=== PATIENT | female | born 1950 | race Caucasian/White ===

== ENCOUNTER 2016-12-25 19:54 | Observation (INO) | payer MEDICARE ==
[2016-12-25] MEDS ORDERED: ALBUTEROL SULFATE 2.5 MG/0.5 ML VIAL.NEB IH ONE ×2 (20:09→20:12)
[2016-12-25] MEDS ORDERED: ALBUTEROL SULFATE/IPRATROPIUM 3 ML NEBU IH ONE ×2 (20:20→20:21)
[2016-12-25] MEDS ORDERED: METHYLPREDNISOLONE SOD SUCC/PF 40 MG/ML VIAL IV ONE (20:21)
--- NOTE | 2016-12-25 20:25 | ERNOTE ---
Dyspnea - Date Date of Service: 12/25/16 - General Presenting Symptoms: shortness of breath, difficulty of breathing Time Seen by Provider: 12/25/16 20:17 Source: patient Exam Limitations: no limitations - Immun/Allergies/Home Medications Immunizations: IMMUNIZATION HX Immunizations Up to Date Yes History of Influenza Vaccine Yes Hx Pneumococcal Vaccination Yes Allergies/Adverse Reactions: Allergies No Known Drug Allergies Allergy (Verified 12/25/16 20:05) Home Medications: HOME MEDICATIONS Albuterol Sulfate [Proventil Hfa] 2 puff IH Q4H PRN 12/25/16 [Last Taken 19:45] - History of Present Illness Narrative: Pt. comes in with c/o SOB for over a week pt. saw the ER near her home in [facility].Pt. deniesa ny CP, but belcher state that she has fatigue, wheezing, cough and chest heaviness. Pt. states taht she ahs taken her albuterol inhaler without relief.Pt. has a known hx of asthma.Pt. denies any fever or rhinorrhea, NVD, or alleviating factors. Review of Systems - Review of Systems Constitutional: Present: weakness, fatigue. Absent: recent illness, fever, chills, malaise, weight loss EYE: Present: no symptoms reported ENT: Present: no symptoms reported Respiratory: Present: shortness of breath, cough, wheezing Cardiology: Present: no symptoms reported. Absent: chest pain, palpitations, edema Gastrointestinal/Abdominal: Present: no symptoms reported. Absent: nausea, vomiting, diarrhea Genitourinary: Present: no symptoms reported Musculoskeletal: Present: no symptoms reported. Absent: back pain, joint pain Skin: Present: no symptoms reported. Absent: rash, change in color Neurological: Present: no symptoms reported. Absent: headache, dizziness/light- headedness, numbness, tingling All Other Systems: All systems neg except as marked - Patient's Past Medical History Patient History - Medical: No pertinent hx Patient History - Cardiac/Respiratory: Asthma, Hypertension Patient History - Cancer: No Hx of Cancer Patient History - Surgical Procedures: Cholecystectomy, Total Hip Replacement Patient History - Other: None - Social History Living Situations: home Psych History: Hx of Anxiety Smoking Status: Never smoker Alcohol Use: none Drug Use: none - Immunizations Immunizations Up to Date: Yes Hx Pneumococcal Vaccination: Yes History of Influenza Vaccine: Yes Physical Exam - Physical Exam General Appearance: Present: wd/wn, alert, no apparent distress Eye Exam: Normal inspection: bilateral, PERRL: bilateral, EOMI: bilateral Ears, Nose, Throat: Present: normal ENT inspection, normal pharynx Neck: Present: normal inspection, nontender. Absent: lymphadenopathy (R), lymphadenopathy (L) Respiratory: Present: chest nontender, respiratory distress, accessory muscle use, wheezing - throughout Cardiovascular/Chest: Present: no murmur, normal peripheral pulses, tachycardia Gastrointestinal/Abdominal: Present: normal bowel sounds, nontender, nondistended, soft, no organomegaly Back Exam: Present: normal inspection, normal range of motion, no CVA tenderness , no vertebral tenderness Extremity Exam: Present: normal inspection, no edema Neurological Exam: Present: alert, oriented, normal mood/affect, no motor/ sensory deficits Skin Exam: Present: warm/dry, pallor ED Progress - Date and Time Seen: Date and Time: 12/25/16 21:25 Discussed with Nya and she accepts admittance for severe asthma exacerbation. - Results and Orders Patient's Lab Results:: I have reviewed the patient's lab results. - Vital Signs Patient's Vital Signs:: I have reviewed the patient's vital signs. Vital Signs: Vital Signs 12/25/16 12/25/16 12/25/16 19:59 20:03 20:10 Temperature 36.4 C L Pulse Rate 87 95 85 Respiratory 24 H 26 H 28 H Rate Blood Pressure 207/116 O2 Sat by Pulse 94 92 92 Oximetry 12/25/16 20:17 Temperature Pulse Rate 89 Respiratory 24 H Rate Blood Pressure O2 Sat by Pulse Oximetry - EKG EKG: NSR, nonspecific ST T wave changes EKG read: Reviewed by me EKG Comments: interp by dr franco - X-Ray X-Ray #1 X-Ray: chest Interpretation: Interp. by me X-ray Comments: Bronchial cuffing no mconsolidation - Progress/Reassessment Chief Complaint: Dyspnea Progress:: Unchanged Departure Clinical Impression: Acute exacerbation of asthma with allergic rhinitis - Departure Disposition: [facility] Condition: Serious
[2016-12-25] MEDS ORDERED: METHYLPREDNISOLONE SOD SUCC/PF 40 MG/ML VIAL ONE (20:26)
[2016-12-25 20:46] LABS: Hematocrit 42.3 % (37.0-47.0); Hemoglobin 14.4 gm/dL (12.5-16.0); Mean Cell Volume 90.2 fl (78-100); Mean Corpuscular Hemoglobin 30.7 pg (27-31); Mean Platelet Volume 10.1 fl (6.0-9.5); Platelet Count 205 K/mm3 (150-450); Red Blood Count 4.69 M/mm3 (4.2-5.4); Red Cell Distribution Width 12.5 % (11.5-14.0); White Blood Count 11.2 K/mm3 (4.0-10.5)
[2016-12-25 21:07] LABS: Albumin * 3.9 gm/dl (3.4-5.0); Anion Gap 14.7 mmol/L (6.8-13.8); BUN/Creatinine Ratio 10.1 (9.0-21.6); Bilirubin, Total 0.4 mg/dL (0.0-1.1); Ca. Corrected For Albumin 9.1 mg/dL (8.4-10.2); Calcium * 9.3 mg/dL (7.9-10.9); Carbon Dioxide 26.3 mmol/L (24-32.6); Total Protein 7.7 gm/dL (6.2-8.2); Troponin I 0.026 ng/ml (0.00-0.10)
[2016-12-25] MEDS ORDERED: NORMAL SALINE 1,000 ML IV ONE (21:10)
[2016-12-25 21:41] LABS: Urine Appearance Slightly Cloudy; Urine Color Yellow
[2016-12-25 21:42] LABS: Urine Bilirubin Negative (NEGATIVE); Urine Blood 50 /ul (NEGATIVE); Urine Ketone Negative (NEGATIVE); Urine Nitrite Positive (NEGATIVE); Urine Protein Negative (NEGATIVE); Urine Specific Gravity >=1.030 SP.GR. (1.005-1.010); Urine Urobilinogen Normal (NORMAL)
[2016-12-25 21:43] LABS: Urine Bacteria 4+; Urine RBC 0-5 /hpf (0-5); Urine WBC None Seen /hpf (0-5)
[2016-12-25] MEDS ORDERED: MONTELUKAST SODIUM 10 MG TABLET PO SCH (22:21)
[2016-12-25] MEDS ORDERED: NITROFURANTOIN/NITROFURAN MAC 100 MG CAPSULE PO SCH (22:30)
--- NOTE | 2016-12-25 22:37 | HP ---
Addendum entered and electronically signed by Nya Painter NP 12/26/16 06 :31: Please note, pt was NOT hypoxic in ER. Her saturations on RA were in the low 90' s. Original Note: Chief Complaint - Chief Complaint Date of Service: 12/25/16 Time of Service: 22:55 Chief Complaint: SOB History of Present Illness: Pt is a 66 year old female from [place] who comes in with c/o SOB for over a week. PMH is significant for kidney stones, HTN, and asthma. Pt was seen in her local ER for they same symptoms one week ago, she was dc'd with an albuterol inhaler. Pt states that she has continued to have more and more SOB since then. She denies CP, fever, chills, dizziness, diaphoresis, n/v/d, recent travel out of the country, or sick contacts. 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 Endorses fatigue, wheezing, cough with occasional white/yellow sputum production, rhinorrhea, and chest heaviness. In addition she notes bilateral flank pain and hematuria for the past week. Prior to arrival she has taken her albuterol inhaler without relief. There are not alleviating or exacerbating factors. In the ER upon presentation she was 87% on room air with SBP >200, saturations and BP improved with duonebs and supplemental oxygen. Chest xray revealed bronchial thickening. Laboratory findings were significant for lactic acid 2.7, WBC 11.2 with eospinophils 13.7, Na+ 145, Cl 108, Procal <0.05. UA was with +50 blood, +4 bacteria, and + nitrates. ABG's were as noted below: Laboratory Tests 12/25/16 20:20 pCO2 30.2 L pO2 57.4 L HCO3 19.9 L Total CO2 20.8 Base Excess -3.1 L ABG pH 7.44 ABG O2 Sat (Measured) 91.2 L She will be admitted to inpt for acute asthma exacerbation with hypoxia and UTI r/o renal caculi. - Patient's Past Medical History Patient History - Medical: Anxiety, Kidney stone Patient History - Cardiac/Respiratory: Asthma, Hypertension Patient History - Cancer: No Hx of Cancer Patient History - Surgical Procedures: Cholecystectomy, Total Hip Replacement, Orthopedic Patient History - Other: None - Family History Mother Family History - Medical: , Dementia Family History - Cardiac/Respiratory: Coronary Heart Disease Family History - Cancer: No pertinent family hx Father Family History - Medical: Family History - Cardiac/Respiratory: No pertinent hx Family History - Cancer: Lung - Social History Living Situations: home Psych History: Hx of Anxiety Smoking Status: Never smoker Have you smoked in the past 12 months: No Do you dip or chew tobacco: No Patient requests Smoking Cessation Consult: No Initiate information on Smoking Cessation: No Alcohol Use: none Drug Use: none - Immunizations Immunizations Up to Date: Yes Hx Pneumococcal Vaccination: Yes History of Influenza Vaccine: Yes Review Of Systems (GEN) - Review of Systems Generalized/Overall Review: Present: Weakness, Chills, Fatigue EENTM: Present: Other - sore throat and rhinorrhea Respiratory: Present: Cough - with white/yellow sputum, Shortness of Breath, Orthopnea, Wheezing Cardiac: Present: Palpitations Abdominal: Present: No Symptoms Reported Genitourinary: Present: Other - bilateral flank pain, states started last week Musculoskeletal: Present: No Symptoms Reported Neurological: Present: No Symptoms Reported Skin: Present: No Symptoms Reported Endocrine: Present: No Symptoms Reported Allergies/Adverse Reactions: Allergies Allergy/AdvReac Type Severity Reaction Status Date / Time No Known Drug Allergies Allergy Verified 12/25/16 20:05 Home Medications: HOME MEDICATIONS Albuterol Sulfate [Proventil Hfa] 2 puff IH Q4H PRN 12/25/16 [Last Taken 19:45] Clonidine HCl [Catapres] 0.1 mg PO DAILY 12/25/16 [Last Taken Unknown] Exam - Exam Vital Signs: Vital Signs - Last Taken Temp 36.4 C L 12/25/16 19:59 Pulse 79 12/25/16 21:53 Resp 18 12/25/16 21:53 BP 204/88 12/25/16 21:53 Pulse Ox 94 2L 12/25/16 21:53 Constitutional: Present: Alert, Oriented x3, Cooperative, Acute distress ENT Exam: Present: normal ENT inspection, hearing grossly normal, other - generalized hyperemia of pharynx, +lymphadnopathy Eye Exam: bilateral eye: normal inspection, PERRL Back Exam: Present: normal inspection, CVA tenderness (R), CVA tenderness (L) Respiratory: Present: chest non-tender, decreased breath sounds, accessory muscle use, wheezing, No rales, other - post insp/exp effort with decreased air movement Cardiovascular/Chest: Present: normal peripheral pulses, regular rate, rhythm, no chest tenderness, no edema, no gallop, no JVD, no murmur Peripheral Pulses: dorsalis-pedis (R): 2+, dorsalis-pedis (L): 2+, radial (R): 2 +, radial (L): 2+ Abdomen: Present: Normal bowel sounds, soft, nontender, nondistended, no rebound tenderness, no hepatospenomegaly /Rectal: Present: Other - +groin and flank pain, +hematuria Extremity: Present: normal range of motion, non-tender, normal inspection, no pedal edema, no calf tenderness, normal capillary refill Skin Exam: Present: normal color, warm/dry, no cyanosis Lymphatic: Present: no adenopathy Neurologic: Present: no motor/sensory deficits, alert, normal mood/affect, oriented x 3 Appearance: Present: appropriate appearance, appropriate insight, neat Eye contact: Present: cooperative, good eye contact, normal speech Thoughts: Present: normal thought pattern, no apparent hallucination Diagnostic Studies: Laboratory Results Laboratory Tests 12/25/16 12/25/16 12/25/16 20:20 20:25 20:25 WBC 11.2 H Hgb 14.4 Hct 42.3 Plt Count 205 Eosinophils % 13.7 H Eosinophils # 1.5 H pCO2 30.2 L pO2 57.4 L HCO3 19.9 L Total CO2 20.8 Base Excess -3.1 L ABG pH 7.44 ABG O2 Sat (Measured) 91.2 L Sodium 145 H Potassium 4.0 Chloride 108 H Carbon Dioxide 26.3 Anion Gap 14.7 H BUN 10 Creatinine 0.99 BUN/Creatinine Ratio 10.1 Random Glucose 112 H Lactic Acid, Venous AST 36 ALT 57 Alkaline Phosphatase 110 Troponin I 0.026 B-Natriuretic Peptide 168 Procalcitonin Urine Blood Urine Nitrate Urine Bacteria Urine Culture Comments 12/25/16 12/25/16 12/25/16 20:25 21:10 21:27 WBC Hgb Hct Plt Count Eosinophils % Eosinophils # pCO2 pO2 HCO3 Total CO2 Base Excess ABG pH ABG O2 Sat (Measured) Sodium Potassium Chloride Carbon Dioxide Anion Gap BUN Creatinine BUN/Creatinine Ratio Random Glucose Lactic Acid, Venous 2.7 H* AST ALT Alkaline Phosphatase Troponin I B-Natriuretic Peptide Procalcitonin Less than 0.05 L Urine Blood 50 H Urine Nitrate Positive H Urine Bacteria 4+ H Urine Culture Comments Culture to follow Assessment/Plan - Assessment/Plan (1) Acute exacerbation of asthma with allergic rhinitis Assessment: Acute asthma exacerbation with hypoxia. Pt reports rhinorrhea and dry throat, could be exacerbation due to allergies-eosinophils 13.7, will add singular. No infectious process noted on CT will proceed with corticosteroids, duonebs, and supplemental O2. - EKG EKG: NSR, nonspecific ST T wave changes EKG read: Reviewed by me EKG Comments: interp by dr franco - X-Ray X-Ray #1 X-Ray: chest Interpretation: Interp. by me X-ray Comments: Bronchial cuffing no consolidation Plan: -Singular 10mg PO at HS -Duoneb Q6H schedule -Maintain sats >93% -Telemetry -Prednisone 40mg QD Problem: Acute (2) Renal calculi Assessment: UA with +50 blood, pt reports bilateral flank and groin pain. +hx of kidney stones. Plan: -CT per stone protocol in am -Strain all urine -MIVF @125 -Toradol PRN for pain Problem: Suspected (3) HTN (hypertension) Assessment: SBP elevated >200 upon arrival. Likely d/t pain and increased respiratory effort. Waiting for conformation of home BP medications. Plan: -VS Q4H -Clonidine 0.1mg PO now -Resume home BP medications Problem: Chronic (4) UTI (urinary tract infection) Assessment: UA +4 bacteria, +nitrates, +50 blood Plan: -Cipro 400mg IV Q24* -BC pending -Urine legionella -Culture pending -R/o kidney stone-CT in am Problem: Acute
[2016-12-25] MEDS ORDERED: predniSONE 20 MG TABLET PO SCH (22:45)
[2016-12-25] MEDS ORDERED: predniSONE 20 MG TABLET ONE (23:12)
[2016-12-25] MEDS ORDERED: IPRATROPIUM BROMIDE 0.5 MG/2.5 ML VIAL.NEB IH SCH (23:15)
[2016-12-25] MEDS ORDERED: CLONIDINE HCL 0.1 MG TABLET PO SCH (23:15)
[2016-12-25] MEDS: 0.5 NORMAL SALINE 1,000 ML IV PRN (23:23)
[2016-12-26] MEDS: ALBUTEROL SULFATE/IPRATROPIUM 3 ML NEBU IH SCH ×5 (00:17→14:39)
[2016-12-26] MEDS ORDERED: ALBUTEROL SULFATE/IPRATROPIUM 3 ML NEBU IH PRN (00:27)
[2016-12-26] MEDS ORDERED: KETOROLAC TROMETHAMINE 30 MG/ML VIAL IV PRN (00:30)
[2016-12-26] MEDS: CIPROFLOXACIN LACTATE/D5W 400 MG/200 ML BAG IV SCH ×2 (00:45→11:14)
[2016-12-26 02:11] LABS: Hematocrit 39.8 % (37.0-47.0); Hemoglobin 13.4 gm/dL (12.5-16.0); Mean Cell Volume 90.7 fl (78-100); Mean Corpuscular Hemoglobin 30.5 pg (27-31); Mean Corpuscular Hgb Conc 33.7 g/dl (32-36); Mean Platelet Volume 9.9 fl (6.0-9.5); Neutrophil # 7.9 K/mm3 (1.3-6.0); Neutrophil % 88.3 % (42-75.0); Platelet Count 161 K/mm3 (150-450); Red Blood Count 4.39 M/mm3 (4.2-5.4); Red Cell Distribution Width 12.5 % (11.5-14.0)
[2016-12-26 02:28] LABS: Albumin * 3.4 gm/dl (3.4-5.0); Anion Gap 14.9 mmol/L (6.8-13.8); Bilirubin, Total 0.3 mg/dL (0.0-1.1); Calcium * 8.8 mg/dL (7.9-10.9); Carbon Dioxide 24.3 mmol/L (24-32.6); Potassium 4.2 mmol/L (3.4-4.6); Total Protein 6.9 gm/dL (6.2-8.2)
[2016-12-26] MEDS: 0.5 NORMAL SALINE 1,000 ML IV PRN (08:08)
[2016-12-26] MEDS ORDERED: predniSONE 20 MG TABLET PO SCH (09:00)
[2016-12-26] MEDS ORDERED: CLONIDINE HCL 0.1 MG TABLET PO SCH (09:00)
[2016-12-26] MEDS ORDERED: BENZONATATE 100 MG CAPSULE PO PRN (09:11)
[2016-12-26] MEDS ORDERED: guaiFENesin/DEXTROMETHORPHAN 118 ML BTL PO PRN (13:02)
[2016-12-26 14:57] VITALS: BP 159/80
--- NOTE | 2016-12-26 16:01 | DS ---
(1) Acute bronchitis Problem: Acute (2) Reactive airway disease with acute exacerbation Problem: Acute Description of Stay: Naila is a 66 yo female that was admitted to observation for significant shortness of breath that was diagnosed to be reactive airway from acute bronchitis. She was given breathing treatments, steroids, and antibiotics. She did not have any respiratory failure and symptoms quickly improved with treatment. With no hypoxia and feeling better she was discharged to home. Procedures Performed: none Discharge Disposition: Home self care Disposition: Home self-care Condition: Good Discharge Activity: Activity as tolerated Discharge Diet: General/regular food Referrals: [facility]OUTSIDE [Non Staff Physicians] - One Week Problem Oriented Discharge Instructions to Patient/Family: Bronchospasm, Adult , Asthma, Acute Bronchospasm Additional Patient Instructions (free text): Use Albuterol inhaler two puffs inhaled twice a day for the next week, may be used every 4 hours as needed. Prescriptions (Any new or edited meds): Albuterol Sulfate [Proventil Hfa] 2 puff IH Q4H PRN #1 hfa.aer.ad PRN Reason: Wheezing Benzonatate [Tessalon] 200 mg PO QID PRN #90 capsule PRN Reason: Cough Levofloxacin [Levaquin] 750 mg PO DAILY #7 tablet Promethazine HCl/Codeine [Prometh-Codein 6.25-10 mg/5 ml] 5 ml PO Q6H #120 syrup predniSONE [Prednisone] 40 mg PO DAILY #14 tablet Complete Home Medications List: Complete Home Medication List: Clonidine HCl [Catapres] 0.1 mg PO DAILY 12/25/16 Albuterol Sulfate [Proventil Hfa] 2 puff IH Q4H PRN #1 hfa.aer.ad 12/26/16 Benzonatate [Tessalon] 200 mg PO QID PRN #90 capsule 12/26/16 Levofloxacin [Levaquin] 750 mg PO DAILY #7 tablet 12/26/16 Promethazine HCl/Codeine [Prometh-Codein 6.25-10 mg/5 ml] 5 ml PO Q6H #120 syrup 12/26/16 predniSONE [Prednisone] 40 mg PO DAILY #14 tablet 12/26/16
[2016-12-26] MEDS ORDERED: ALBUTEROL SULFATE 2.5 MG/3 ML VIAL.NEB IH PRN (16:23)
[2016-12-26] MEDS ORDERED: ALBUTEROL SULFATE 60 PUFF INHALER IH PRN (16:34)
== END 2016-12-26 16:57 | disposition home or self-care (01) ==
LOC: ER 19:54 → MS 21:35 → OBSVTOIN 22:56 → INTOOBSV 22:56
PROVIDERS: ADMIT Nurse Practitioner Gerontology; ATTEND Family Medicine
PROC: 4A033R1 Measurement of Arterial Saturation, Peripheral, Percutaneous Approach (ICD-10-PCS; principal; 2016-12-25)
DX: J20.9 Acute bronchitis, unspecified (principal); J45.901 Unspecified asthma with (acute) exacerbation; N39.0 Urinary tract infection, site not specified; B96.20 Unspecified Escherichia coli [E. coli] as the cause of diseases classified elsewhere; I10 Essential (primary) hypertension; Z87.442 Personal history of urinary calculi
CPT/HCPCS: 36415; 36600; 71020; 74176; 80053; 81001; 82803; 83605; 83880; 84145; 84484; 85025; 87040; 87077; 87081; 87086; 87186; 87430; 87449; 93005; 94640; 94760; 96365; 96374; 96375; 99283; G0378

== ENCOUNTER 2018-12-13 17:16 | Observation (INO) ==
[2018-12-13] MEDS ORDERED: ALBUTEROL SULFATE/IPRATROPIUM 3 ML NEBU IH ONE (17:36)
[2018-12-13 17:50] LABS: Hematocrit 42.3 % (37.0-47.0); Hemoglobin 14.2 gm/dL (12.5-16.0); Mean Cell Volume 91.6 fl (78-100); Mean Corpuscular Hemoglobin 30.7 pg (27-31); Mean Corpuscular Hgb Conc 33.6 g/dl (32-36); Mean Platelet Volume 9.8 fl (8-12.5); Neutrophil # 6.9 K/mm3 (1.3-6.0); Neutrophil % 67.9 % (42-75.0); Platelet Count 180 K/mm3 (150-450); Red Blood Count 4.62 M/mm3 (4.2-5.4); Red Cell Distribution Width 12.3 % (11.5-14.0); White Blood Count 10.2 K/mm3 (4.0-10.5)
[2018-12-13 18:03] LABS: Anion Gap 13.5 mmol/L (6.8-13.8); BUN/Creatinine Ratio 15.4 (9.0-21.6); Bilirubin, Total 0.9 mg/dL (0.0-1.1); Ca. Corrected For Albumin 9.2 mg/dL (8.4-10.2); Calcium * 9.5 mg/dL (7.9-10.9); Carbon Dioxide 26.5 mmol/L (24-32.6); Total Protein 7.4 gm/dL (6.2-8.2)
[2018-12-13] MEDS ORDERED: ONDANSETRON HCL/PF 2 MG/ML VIAL IV ONE (18:17)
[2018-12-13] MEDS ORDERED: METHYLPREDNISOLONE SOD SUCC/PF 125 MG/2 ML VIAL IV ONE (18:17)
[2018-12-13] MEDS ORDERED: ONDANSETRON HCL 8 MG TABLET PO ONE (18:17)
--- NOTE | 2018-12-13 18:57 | ERNOTE ---
Dyspnea - Date Date of Service: 12/13/18 - General Presenting Symptoms: shortness of breath Time Seen by Provider: 12/13/18 17:35 Source: patient, family, RN notes reviewed, old records Exam Limitations: other - poor historian - Immun/Allergies/Home Medications Immunizations: IMMUNIZATION HX Immunizations Up to Date Yes History of Influenza Vaccine Yes Hx Pneumococcal Vaccination Yes Allergies/Adverse Reactions: Allergies No Known Drug Allergies Allergy (Verified 12/25/16 20:05) Home Medications: HOME MEDICATIONS Clonidine HCl [Catapres] 0.1 mg PO DAILY 12/25/16 [Last Taken Unknown] Albuterol Sulfate [Proventil Hfa] 2 puff IH Q4H PRN #1 hfa.aer.ad 12/26/16 [Last Taken Unknown] Aspirin 81 mg PO DAILY 12/13/18 [Last Taken Unknown] - History of Present Illness Narrative: Naila is a 68 year old female brought to the ED by wheelchair after a rapid response was called. She had entered the building at the clinic doors and asked for help because she was short of breath. She has had dyspnea and a cough for approximately 2 weeks. She states she has been seen in another ER twice, but was not given any medication for her breathing. She was started on an additional blood pressure medication but had to stop it because it made her cough worse. She is very vague about her history. She reports that she just has asthma and only uses an inhaler as needed. She reports vomiting once on the way here. Her daughter later reported that she went with the patient to see a specialist about her asthma. She was told that she has "lung failure." The daughter reports that the patient has been diagnosed with COPD. She is not a smoker but her was. 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 Denies: fever/chills, chest pain/discomfort, palpitations, leg/calf pain, ankle/leg swelling Prior Treatment: Reports: recently seen, previous episodes. Denies: currently on antibiotics Review of Systems - Review of Systems Constitutional: Present: fatigue, malaise. Absent: chills EYE: Absent: eye pain, eye discharge ENT: Present: nose congestion, sore throat. Absent: ear pain Respiratory: Present: shortness of breath, cough, wheezing. Absent: orthopnea Cardiology: Absent: chest pain, syncope, edema Gastrointestinal/Abdominal: Present: nausea, vomiting. Absent: diarrhea Genitourinary: Absent: dysuria, hematuria Musculoskeletal: Absent: muscle pain, joint pain Skin: Absent: rash, lesions Neurological: Present: dizziness/light-headedness. Absent: headache Endocrine: Present: no symptoms reported Hematologic/Lymphatic: Absent: easy bruising, easy bleeding Psych: Present: anxiety Medical History (Updated 12/13/18 @ 19:23 by Suzette Carballo NP) COPD (chronic obstructive pulmonary disease) History of asthma Hx of fracture of left hip Hx of primary hypertension Surgical History: Surgical History (Updated 12/13/18 @ 18:40 by Linh Escamilla RN) Hx of cholecystectomy hx of fatty tumor removal Family History: Family History (Updated 12/13/18 @ 18:40 by Linh Escamilla RN) Other No pertinent family history Social History: Preferred Language Kyrgyz Do you have any sikhism or No cultural preference? Smoking Status Never smoker Have you smoked in the past 12 No months Do you dip or chew tobacco No Psych History Hx of Anxiety Alcohol Use none Drug Use none No Social History Section defined Physical Exam - Physical Exam General Appearance: Present: wd/wn, alert, mild distress Head Exam: Present: normal inspection Eye Exam: Normal inspection: bilateral Ears, Nose, Throat: Present: normal ENT inspection, normal pharynx Neck: Present: normal inspection, nontender, supple, full range of motion Respiratory: Present: respiratory distress, accessory muscle use, decreased breath sounds, expiration (prolonged), other - unable to speak in complete sentences Cardiovascular/Chest: Present: regular rate, rhythm, no murmur, normal peripheral pulses Gastrointestinal/Abdominal: Present: nontender, nondistended, soft Extremity Exam: Present: normal inspection, non-tender, no edema Neurological Exam: Present: alert, oriented, no motor/sensory deficits, other - flat affect, depressed appearing. Absent: normal mood/affect Skin Exam: Present: diaphoresis, pallor Progress - Results and Orders Patient's Lab Results:: I have reviewed the patient's lab results. - Vital Signs Patient's Vital Signs:: I have reviewed the patient's vital signs. Vital Signs: Vital Signs 12/13/18 17:17 12/13/18 18:28 Temperature 36.8 C Pulse Rate 89 89 Respiratory Rate 12 15 Blood Pressure 193/84 H 173/91 H O2 Sat by Pulse Oximetry 91 L 90 L - EKG EKG #1 EKG: NSR, nonspecific ST T wave changes EKG read: Reviewed by me - X-Ray X-Ray #1 X-Ray: chest Interpretation: Reviewed by me X-ray Comments: TECHNIQUE: PA and lateral views of the chest were obtained. 2 images. COMPARISONS: 05/10/2017 FINDINGS: Chest PA Lateral * Normal lung volumes. No consolidation or mass. Bibasilar linear opacities suggestive of atelectasis or scar versus early infiltrates. No significant vascular congestion suggested. No pneumothorax or pleural fluid collections. Cardiac silhouette within normal limits. Mild tortuosity of the thoracic aorta noted, with overlying atherosclerotic vascular calcifications. Overall stable. Trachea is in normal position. Bones show degenerative changes of the spine. IMPRESSION: 1. Bibasilar linear opacities suggestive of atelectasis/scar versus early infiltrates. Correlate clinically. 2. Consider radiographic follow-up to document resolution. Electronically signed by Ewelina Hand M.D.. - CT/Ultrasound CT/Ultrasound Narrative: CTA chest shows no evidence of PE per preliminary report - Progress/Reassessment Chief Complaint: Dyspnea Progress:: Improved Plan - Plan Plan: Patient's respiratory distress has improved. She is now able to speak in complete sentences. Her oxygen saturation is 94% on 2 liters, however, she continues to drop into the upper 80's on room air, even at rest. She was given a Duoneb treatment without much change - her lungs continued to sound diminished and she did not feel a lot different. Dr. Mclaughlin was contacted and the patient will be admitted to observation status. Departure Clinical Impression: Hypoxia Acute asthma exacerbation Qualifiers: Asthma severity: unspecified severity Asthma persistence: unspecified Qualified Code(s): J45.901 - Unspecified asthma with (acute) exacerbation - Departure Disposition: Still a patient Condition: Stable
[2018-12-13 18:58] LABS: BNP * 216 pg/mL (5-325); Troponin I Less than 0.017 ng/mL (0.00-0.10)
[2018-12-13] MEDS ORDERED: ALBUTEROL SULFATE 2.5 MG/0.5 ML VIAL.NEB IH PRN (21:30)
[2018-12-13] MEDS ORDERED: ENOXAPARIN SODIUM 40 MG/0.4 ML SYRG SC SCH (21:30)
--- NOTE | 2018-12-13 21:43 | HP ---
Chief Complaint - Chief Complaint Date of Service: 12/13/18 Time of Service: 21:00 Chief Complaint: cough, fever, weakness, chest discomfort. History of Present Illness: Naila Marcos is a 68-year-old female patient admitted through the emergency room with cough and shortness of breath and weakness. Her oxygen saturation on room air was 88% and on 2 L nasal cannula is 96%. Previously she is demonstrated room air O2 sats of 95%. She does have a history of COPD. She is admitted for observation, respiratory therapy, IV antibiotics. 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 Smoking Status Never smoker Have you smoked in the past 12 No months Do you dip or chew tobacco No Psych History Hx of Anxiety Alcohol Use none Drug Use none No Social History Section defined Review Of Systems (GEN) - Review of Systems Generalized/Overall Review: Present: Weakness, Fever EENTM: Present: No Symptoms Reported Respiratory: Present: Cough, Shortness of Breath, Wheezing Cardiac: Present: No Symptoms Reported Abdominal: Present: No Symptoms Reported Genitourinary: Present: No Symptoms Reported Musculoskeletal: Present: No Symptoms Reported Neurological: Present: No Symptoms Reported Skin: Present: No Symptoms Reported Endocrine: Present: No Symptoms Reported Immunizations: IMMUNIZATION HX Immunizations Up to Date Yes History of Influenza Vaccine Yes Hx Pneumococcal Vaccination Yes Allergies/Adverse Reactions: Allergies Allergy/AdvReac Type Severity Reaction Status Date / Time No Known Drug Allergies Allergy Verified 12/25/16 20:05 Home Medications: HOME MEDICATIONS Clonidine HCl [Catapres] 0.1 mg PO DAILY 12/25/16 [Last Taken Unknown] Albuterol Sulfate [Proventil Hfa] 2 puff IH Q4H PRN #1 hfa.aer.ad 12/26/16 [Last Taken Unknown] Aspirin 81 mg PO DAILY 12/13/18 [Last Taken Unknown] Exam - Exam Vital Signs: Vital Signs - Last Taken Temp 37.2 C 12/13/18 20:56 Pulse 94 12/13/18 20:56 Resp 20 12/13/18 20:56 BP 168/75 H 12/13/18 19:22 Pulse Ox 94 12/13/18 20:56 Constitutional: Present: Alert, Oriented x3, Cooperative, Well developed, Well nourished, Mild distress ENT Exam: Present: normal ENT inspection, hearing grossly normal, pharynx normal Eye Exam: bilateral eye: normal inspection, PERRL, EOMI Neck: Present: non-tender, full range of motion, supple Back Exam: Present: normal inspection, no CVA tenderness, no vertebral tenderness Breasts: Present: Exam deferred Respiratory: Present: chest non-tender, rhonchi, wheezing, expiration (prolonged) Cardiovascular/Chest: Present: normal peripheral pulses, regular rate, rhythm, no chest tenderness, no edema, no gallop, no JVD, no murmur, no rub Peripheral Pulses: carotid (R): 2+, carotid (L): 2+, radial (R): 2+, radial (L): 2+ Abdomen: Present: Normal bowel sounds, soft, nontender, nondistended, no rebound tenderness, no hepatospenomegaly, no masses /Rectal: Present: Exam deferred Extremity: Present: normal range of motion, non-tender, normal inspection Skin Exam: Present: normal color, warm/dry, no cyanosis Lymphatic: Present: no adenopathy, axilla node tender (R) 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, normal cerebellar test, no motor/sensory deficits, alert, normal mood/affect, oriented x 3 Appearance: Present: appropriate appearance, appropriate insight, neat Eye contact: Present: cooperative, good eye contact, normal speech Thoughts: Present: normal thought pattern, no apparent hallucination Diagnostic Studies: Abnormal Lab Results 12/13/18 12/13/18 Range/Units 15:45 17:45 Immature Gran % (Auto) 0.50 H (0.001-0.429) % Immature Gran # (Auto) 0.05 H (0.000-0.0310) K/mm3 Lymphocytes % 19.6 L (20-51) % Eosinophils % 5.9 H (0.0-3.0) % Neutrophils # 6.9 H (1.3-6.0) K/mm3 D-Dimer 0.65 H (0.19-0.49) ug/mL Laboratory Results WBC 10.2 K/mm3 (4.0-10.5) 12/13/18 17:45 RBC 4.62 M/mm3 (4.2-5.4) 12/13/18 17:45 Hgb 14.2 gm/dL (12.5-16.0) 12/13/18 17:45 Hct 42.3 % (37.0-47.0) 12/13/18 17:45 MCV 91.6 fl (78-100) 12/13/18 17:45 MCH 30.7 pg (27-31) 12/13/18 17:45 MCHC 33.6 g/dl (32-36) 12/13/18 17:45 RDW 12.3 % (11.5-14.0) 12/13/18 17:45 Plt Count 180 K/mm3 (150-450) 12/13/18 17:45 MPV 9.8 fl (8-12.5) 12/13/18 17:45 Immature Gran % (Auto) 0.50 % (0.001-0.429) H 12/13/18 17:45 Immature Gran # (Auto) 0.05 K/mm3 (0.000-0.0310) H 12/13/18 17:45 67.9 % (42-75.0) 12/13/18 17:45 19.6 % (20-51) L 12/13/18 17:45 5.7 % (0.0-9) 12/13/18 17:45 5.9 % (0.0-3.0) H 12/13/18 17:45 0.4 % (0.0-1.0) 12/13/18 17:45 Nucleated RBC % 0.0 k/mm3 (0-1) 12/13/18 17:45 6.9 K/mm3 (1.3-6.0) H 12/13/18 17:45 2.00 k/mm3 (1.5-3.5) 12/13/18 17:45 0.6 k/mm3 (0.0-1.0) 12/13/18 17:45 0.6 k/mm3 (0.0-0.7) 12/13/18 17:45 Absolute Basophils 0.0 k/mm3 (0.0-0.1) 12/13/18 17:45 0.65 ug/mL (0.19-0.49) H 12/13/18 15:45 Sodium 141 mmol/L (132-142) 12/13/18 17:45 141 mmol/L (130-142) 12/13/18 17:45 Potassium 4.0 mmol/L (3.4-4.6) 12/13/18 17:45 Chloride 105 mmol/L (97-106) 12/13/18 17:45 Carbon Dioxide 26.5 mmol/L (24-32.6) 12/13/18 17:45 13.5 mmol/L (6.8-13.8) 12/13/18 17:45 BUN 14 mg/dL (3-23) 12/13/18 17:45 0.91 mg/dL (0.4-1.4) 12/13/18 17:45 Est GFR (Non-Af Amer) 65 mL/min (60-130) D 12/13/18 17:45 15.4 (9.0-21.6) 12/13/18 17:45 98 mg/dL (70-110) 12/13/18 17:45 Calcium 9.5 mg/dL (7.9-10.9) 12/13/18 17:45 Calcium Adj for Albumin 9.2 mg/dL (8.4-10.2) 12/13/18 17:45 0.9 mg/dL (0.0-1.1) 12/13/18 17:45 AST 26 U/L (0-48) 12/13/18 17:45 ALT 39 U/L (19-67) 12/13/18 17:45 79 U/L (50-170) 12/13/18 17:45 Less than 0.017 ng/mL (0.00-0.10) 12/13/18 17:45 B-Natriuretic Peptide 216 pg/mL (5-325) 12/13/18 17:45 7.4 gm/dL (6.2-8.2) 12/13/18 17:45 4.0 gm/dl (3.4-5.0) 12/13/18 17:45 Assessment/Plan - Narrative Narrative: She will continue IV antibiotics, breathing treatments, and I have added cough syrup and Tessalon Perles. I will also give her Lorazepam 1 mg p.o. to take at bedtime. - Assessment/Plan (1) Acute bronchitis Problem: Acute Qualifiers: Bronchitis organism: unspecified organism Qualified Code(s): J20.9 - Acute bronchitis, unspecified (2) Reactive airway disease with acute exacerbation Problem: Acute Qualifiers: Asthma severity: moderate (3) Acute asthma exacerbation Problem: Acute Qualifiers: Asthma severity: unspecified severity Asthma persistence: unspecified Qualified Code(s): J45.901 - Unspecified asthma with (acute) exacerbation (4) Hypoxia Problem: Acute
[2018-12-13] MEDS ORDERED: LORazepam 1 MG TABLET PO SCH (22:05)
[2018-12-13] MEDS ORDERED: LORazepam 1 MG TABLET ONE (22:09)
[2018-12-13] MEDS: guaiFENesin/DEXTROMETHORPHAN 118 ML BTL PO PRN (22:11)
[2018-12-13] MEDS: BENZONATATE 100 MG CAPSULE PO PRN (22:11)
[2018-12-14] MEDS: BENZONATATE 100 MG CAPSULE PO PRN (06:37)
[2018-12-14] MEDS: guaiFENesin/DEXTROMETHORPHAN 118 ML BTL PO PRN (06:37)
[2018-12-14] MEDS ORDERED: ALBUTEROL SULFATE 2.5 MG/0.5 ML VIAL.NEB IH PRN (07:45)
[2018-12-14] MEDS ORDERED: ASPIRIN 81 MG TAB.CHEW PO SCH (09:00)
[2018-12-14] MEDS ORDERED: CLONIDINE HCL 0.1 MG TABLET PO SCH (09:00)
[2018-12-14] MEDS ORDERED: METHYLPREDNISOLONE SOD SUCC/PF 40 MG/ML VIAL IV ONE (11:00)
--- NOTE | 2018-12-14 11:29 | DS ---
(1) Acute bronchitis Problem: Acute Qualifiers: Bronchitis organism: unspecified organism Qualified Code(s): J20.9 - Acute bronchitis, unspecified (2) Reactive airway disease with acute exacerbation Problem: Acute Qualifiers: Asthma severity: moderate (3) Acute asthma exacerbation Problem: Acute Qualifiers: Asthma severity: unspecified severity Asthma persistence: unspecified Qualified Code(s): J45.901 - Unspecified asthma with (acute) exacerbation (4) Hypoxia Problem: Resolved Description of Stay: Naila Marcos is a 68-year-old female admitted through ER with hypoxemia with O2 sats of 85%. She was evaluated for pneumonia but chest x-ray and CT chest only show atelectasis. She had an admission about a year ago for similar presentation. She does have a diagnosis of COPD. I suspect that she fairchild s allergic reactive airway disease which causes her some ventilatory problems but there is no active infection. This morning she has had breathing treatments and her O2 sat is at 95% on room air. She is still coughing but moving more air when she breathes. She will be discharged to home and to follow with her primary care physician. She will be sent home with prescription for formoterol and budesonide and albuterol for her nebulizer which we will try to get through [facility]. I will also send her home with a tapering dose of prednisone. She will receive 40 mg of Solu-Medrol IV piggyback prior to discharge. Christopher Escobedo worked well for her but may not be affordable. I will order them generically. All of her medications will be sent to the [facility] in [place] except for the nebulizer, budesonide, and formoterol which will be sent to [facility] on Sunday to be processed through her Medicare part B. Procedures Performed: none Results and Findings: Lab Pending Results 12/13/18 15:45: D-Dimer 0.65 H 12/13/18 17:45: WBC 10.2, RBC 4.62, Hgb 14.2, Hct 42.3, MCV 91.6, MCH 30.7, MCHC 33.6, RDW 12.3, Plt Count 180, MPV 9.8, Immature Gran % (Auto) 0.50 H, Immature Gran # (Auto) 0.05 H, Neutrophils % 67.9, Lymphocytes % 19.6 L, Monocytes % 5.7, Eosinophils % 5.9 H, Basophils % 0.4, Nucleated RBC % 0.0, Neutrophils # 6.9 H, Lymphocytes # 2.00, Monocytes # 0.6, Eosinophils # 0.6, Absolute Basophils 0.0 12/13/18 17:45: Sodium 141, Plasma Sodium 141, Potassium 4.0, Chloride 105, Carbon Dioxide 26.5, Anion Gap 13.5, BUN 14, Creatinine 0.91, Est GFR (Non-Af Amer) 65 D, BUN/Creatinine Ratio 15.4, Random Glucose 98, Calcium 9.5, Calcium Adj for Albumin 9.2, Total Bilirubin 0.9, AST 26, ALT 39, Alkaline Phosphatase 79, Total Protein 7.4, Albumin 4.0 12/13/18 17:45: Troponin I Less than 0.017, B-Natriuretic Peptide 216 Discharge Location: Home Disposition: Home self-care Condition: Stable Face to Face Encounter completed per [facility] Guidelines: No Discharge Activity: Activity as tolerated Discharge Diet: General/regular food Additional Patient Instructions (free text): Follow with primary care physician in 2 weeks. Prescriptions (Any new or edited meds): Benzonatate 100 mg PO QID #30 capsule Budesonide 1 mg INHALATION BID #60 ampul.neb Loratadine [Claritin] 10 mg PO DAILY #30 tab Formoterol Fumarate [Perforomist] 20 mcg INHALATION BID #60 vial predniSONE [Prednisone] 3 tab PO BID #30 tab Montelukast Sodium [Singulair] 10 mg PO DAILY #30 tab Complete Home Medications List: Complete Home Medication List: Clonidine HCl [Catapres] 0.1 mg PO DAILY 12/25/16 Aspirin 81 mg PO DAILY 12/13/18 Albuterol Sulfate [Proventil Hfa] 2 puff INHALATION Q4H PRN #1 hfa.aer.ad 12/14/18 Benzonatate 100 mg PO QID #30 cap 12/14/18 Benzonatate [Tessalon] 200 mg PO TID PRN capsule 12/14/18 Budesonide 1 mg INHALATION BID #60 ampul.neb 12/14/18 Formoterol Fumarate [Perforomist] 20 mcg INHALATION BID #60 vial 12/14/18 Loratadine [Claritin] 10 mg PO DAILY #30 tab 05/18/19 Montelukast Sodium [Singulair] 10 mg PO DAILY #30 tab 12/14/18 guaiFENesin/DEXTROMETHORPHAN [Robitussin-Dm] 10 ml PO Q4H PRN #180 btl 12/14/18 predniSONE [Prednisone] 3 tab PO BID #30 tab 12/14/18
[2018-12-14 13:09] VITALS: BP 154/70
[2018-12-14] MEDS ORDERED: LORazepam 1 MG TABLET PO SCH (21:00)
== END 2018-12-14 14:00 | disposition home or self-care (01) ==
LOC: ER 17:16 → MS 17:16
PROVIDERS: ADMIT Family Medicine; ATTEND Family Medicine
CPT/HCPCS: 36415; 71020; 71046; 71275; 80053; 83519; 83880; 84484; 85025; 85379; 93005; 94640; 94664; 96374; 96375; 99285; G0378; J2405; Q9967

== ENCOUNTER 2018-12-18 08:24 | Observation (INO) ==
--- NOTE | 2018-12-18 08:51 | ERNOTE ---
Chest Pain/Cardiac HPI Date of Service: 12/18/18 Chief Complaint: Chest Pain Time Seen by Provider: 12/18/18 08:35 Source: patient Exam Limitations: no limitations Immunizations: IMMUNIZATION HX Immunizations Up to Date Yes History of Influenza Vaccine No Hx Pneumococcal Vaccination No Allergies/Adverse Reactions: Allergies No Known Drug Allergies Allergy (Verified 12/25/16 20:05) Home Medications: HOME MEDICATIONS Clonidine HCl [Catapres] 0.1 mg PO DAILY 12/25/16 [Last Taken Unknown] Aspirin 81 mg PO DAILY 12/13/18 [Last Taken Unknown] Albuterol Sulfate [Proventil Hfa] 2 puff INHALATION Q4H PRN #1 hfa.aer.ad 12/14/18 [Last Taken Unknown] Benzonatate 100 mg PO QID #30 cap 12/14/18 [Last Taken Unknown] Benzonatate [Tessalon] 200 mg PO TID PRN cap 12/14/18 [Last Taken Unknown] Budesonide 1 mg INHALATION BID #60 ampul.neb 12/14/18 [Last Taken Unknown] predniSONE [Prednisone] 3 tab PO BID #30 tab 12/14/18 [Last Taken Unknown] Narrative: Patient presents via EMS for chest pain. This was intense central chest pain that began this am. It lasted approx 30 minutes then seemed to go away but then came back and EMS called. ASA given and CP resolved. Radiation left shoulder. Never had it before. [place] hot with it. No acute SOB. Recent Hospitalization for asthma with negative CT chest. She has never had stress testing. No fever, no recent illnesses. Never had anything like this before. At rest. Timing: gone now Severity/Quality: severe Location: central Chest Pain Radiation: shoulders, back Activities at Onset: none Modifying Factors - Improves: Present: nothing Modifying Factors - Worsens: Present: nothing Aspirin Treatment Today: provided by EMS Associated Symptoms: Present: diaphoresis. Absent: headache, shortness of breath, fever/chills, heartburn, abdominal pain Prior Chest Pain/Cardiac Workup: Denies: prior chest pain Prior Treatment: Reports: recently seen, recently hospitalized. Denies: cu rrently on antibiotics Review of Systems - Review of Systems Constitutional: Absent: fever ENT: Present: no symptoms reported Respiratory: Absent: shortness of breath Cardiology: Present: chest pain Gastrointestinal/Abdominal: Absent: abdominal pain Genitourinary: Absent: dysuria All Other Systems: All systems neg except as marked Medical History (Updated 12/14/18 @ 11:29 by Christopher Mclaughlin DO) History of asthma Hx of fracture of left hip Hx of primary hypertension Surgical History: Surgical History (Updated 12/13/18 @ 18:40 by Linh Escamilla RN) Hx of cholecystectomy hx of fatty tumor removal Family History: Family History (Last Reviewed 12/18/18 @ 08:49 by Timi Hein MD) Father Cancer Mother Dementia Heart failure Son Muscular dystrophy Other No pertinent family history Social History: Preferred Language Uruguayan Smoking Status Never smoker Psych History Hx of Anxiety Alcohol Use none Drug Use none No Social History Section defined Physical Exam - Physical Exam General Appearance: Present: alert, no apparent distress Head Exam: Present: normal inspection, no evidence of injury Eye Exam: Normal inspection: bilateral, PERRL: bilateral Ears, Nose, Throat: Present: normal ENT inspection Neck: Present: normal inspection Respiratory: Present: no respiratory distress, normal breath sounds, no accessory muscle use, lungs clear Cardiovascular/Chest: Present: normal peripheral pulses, bradycardia Gastrointestinal/Abdominal: Present: normal bowel sounds, nontender, nondistended, soft Back Exam: Absent: CVA tenderness (R), CVA tenderness (L) Extremity Exam: Present: normal inspection, other - no dvt findings Neurological Exam: Present: alert, no motor/sensory deficits Skin Exam: Present: normal color, warm/dry Progress - Results and Orders Patient's Lab Results:: I have reviewed the patient's lab results. - Vital Signs Patient's Vital Signs:: I have reviewed the patient's vital signs. Vital Signs: Vital Signs 12/18/18 08:26 12/18/18 08:42 Temperature 36.1 C Pulse Rate 50 L 52 L Respiratory Rate 14 Blood Pressure 134/65 O2 Sat by Pulse Oximetry 96 - EKG EKG #1 EKG read: Interp. by me EKG Comments: Sinus nydia rate 46 Non-specific, no STEMI noted - X-Ray X-Ray #1 X-Ray: chest Interpretation: Interp. by me X-ray Comments: I reviewed official radiology report - Progress/Reassessment Chief Complaint: Chest Pain Progress Note-Subjective: 12/18/18 09:58 Patient pain free. her heart rate has come up. No suggestion of acute asthma exacerbation. She has risk factors with a concerning historical factors for her chest pain and no Hx of evocative testing. Observation and rule out most appropriate. D/W Dr Lucero who will admit. patient agreeable. Departure Clinical Impression: Chest pain, Sinus bradycardia - Departure Disposition: Still a patient Condition: Stable
[2018-12-18 09:00] LABS: Hematocrit 41.2 % (37.0-47.0); Hemoglobin 13.9 gm/dL (12.5-16.0); Mean Cell Volume 92.6 fl (78-100); Mean Corpuscular Hemoglobin 31.2 pg (27-31); Mean Corpuscular Hgb Conc 33.7 g/dl (32-36); Mean Platelet Volume 9.9 fl (8-12.5); Neutrophil # 4.1 K/mm3 (1.3-6.0); Neutrophil % 47.9 % (42-75.0); Platelet Count 179 K/mm3 (150-450); Red Blood Count 4.45 M/mm3 (4.2-5.4); Red Cell Distribution Width 12.3 % (11.5-14.0); White Blood Count 8.5 K/mm3 (4.0-10.5)
[2018-12-18 09:14] LABS: ALT 49 U/L (19-67); AST 37 U/L (0-48); Albumin * 3.4 gm/dl (3.4-5.0); Alkaline Phosphatase * 71 U/L (50-170); Anion Gap 12.6 mmol/L (6.8-13.8); BUN/Creatinine Ratio 17.2 (9.0-21.6); Bilirubin, Total 0.7 mg/dL (0.0-1.1); Blood Urea Nitrogen 16 mg/dL (3-23); Ca. Corrected For Albumin 9.2 mg/dL (8.4-10.2); Carbon Dioxide 27.5 mmol/L (24-32.6); Chloride 107 mmol/L (97-106); Glucose * 93 mg/dL (70-110); Potassium 4.1 mmol/L (3.4-4.6); Sodium 143 mmol/L (132-142); Total Protein 6.7 gm/dL (6.2-8.2); Troponin I Less than 0.017 ng/mL (0.00-0.10)
[2018-12-18] MEDS: BENZONATATE 100 MG CAPSULE PO PRN ×2 (13:06→22:13)
[2018-12-18] MEDS: ALBUTEROL SULFATE/IPRATROPIUM 3 ML NEBU IH PRN (13:51)
--- NOTE | 2018-12-18 14:55 | HP ---
Chief Complaint - Chief Complaint Date of Service: 12/18/18 Time of Service: 12:30 Chief Complaint: chest pain History of Present Illness: Patient with past medical history of asthma and recent hospitalization went to the ER for central chest pain. She has had a cough for months, and it worsened 3 weeks ago. She reports no improvement despite intervention. She was hospitalized this past weekend overnight for this cough per her report. She has a productive cough. Denies lower extremity swelling. The chest pain that was present earlier today has since subsided. She states Tessalon Perles and breathing treatments have been helpful. She reports being prescribed clonidine for cough and has not been taking it. She does not smoke. Denies fevers, abdominal pain, dysuria, constipation, diarrhea, skin problems. She is unable to name her medications. She was admitted for chest pain rule out. Of note, she was bradycardic on her EKG to the upper 40s. 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 Smoking Status Never smoker Have you smoked in the past 12 No months Do you dip or chew tobacco No Psych History Hx of Anxiety Alcohol Use none Drug Use none No Social History Section defined Review Of Systems (GEN) - Review of Systems Generalized/Overall Review: Absent: Fever Respiratory: Present: Cough Cardiac: Present: Chest Pain. Absent: Edema Abdominal: Absent: Abdominal Pain, Constipation, Diarrhea Genitourinary: Absent: Dysuria Skin: Present: No Symptoms Reported Immunizations: IMMUNIZATION HX Immunizations Up to Date Yes History of Influenza Vaccine No Hx Pneumococcal Vaccination No Allergies/Adverse Reactions: Allergies Allergy/AdvReac Type Severity Reaction Status Date / Time No Known Drug Allergies Allergy Verified 12/25/16 20:05 Home Medications: HOME MEDICATIONS Clonidine HCl [Catapres] 0.1 mg PO DAILY 12/25/16 [Last Taken Unknown] Aspirin 81 mg PO DAILY 12/13/18 [Last Taken Unknown] Albuterol Sulfate [Proventil Hfa] 2 puff INHALATION Q4H PRN #1 hfa.aer.ad 12/14/18 [Last Taken Unknown] predniSONE [Prednisone] 3 tab PO BID #30 tab 12/14/18 [Last Taken Unknown] Amoxicillin 500 mg PO TID 12/18/18 [Last Taken Unknown] Benzonatate [Tessalon] 200 mg PO QID PRN 12/18/18 [Last Taken Unknown] Budesonide 1 mg INHALATION BID PRN 12/18/18 [Last Taken Unknown] Montelukast Sodium [Singulair] 10 mg PO DAILY 12/18/18 [Last Taken Unknown] Exam - Exam Vital Signs: Vital Signs - Last Taken Temp 36.7 C 12/18/18 14:32 Pulse 60 12/18/18 14:32 Resp 16 12/18/18 14:32 BP 123/56 12/18/18 14:32 Pulse Ox 95 12/18/18 14:32 Constitutional: Present: Alert, Oriented x3, Cooperative, Well developed, Looks Younger than stated age Respiratory: Present: no respiratory distress, wheezing - slight, bilateral, other - Intermittent cough. Oxygenating via room air Cardiovascular/Chest: Present: regular rate, rhythm Abdomen: Present: soft. Absent: tender Extremity: Absent: lower extremity edema Eye contact: Present: cooperative Diagnostic Studies: Abnormal Lab Results 12/18/18 12/18/18 Range/Units 08:50 08:50 MCH 31.2 H (27-31) pg Immature Gran % (Auto) 1.10 H (0.001-0.429) % Immature Gran # (Auto) 0.09 H (0.000-0.0310) K/mm3 Eosinophils % 7.5 H (0.0-3.0) % Sodium 143 H (132-142) mmol/L Plasma Sodium 143 H (130-142) mmol/L Chloride 107 H (97-106) mmol/L Laboratory Results WBC 8.5 K/mm3 (4.0-10.5) 12/18/18 08:50 RBC 4.45 M/mm3 (4.2-5.4) 12/18/18 08:50 Hgb 13.9 gm/dL (12.5-16.0) 12/18/18 08:50 Hct 41.2 % (37.0-47.0) 12/18/18 08:50 MCV 92.6 fl (78-100) 12/18/18 08:50 MCH 31.2 pg (27-31) H 12/18/18 08:50 MCHC 33.7 g/dl (32-36) 12/18/18 08:50 RDW 12.3 % (11.5-14.0) 12/18/18 08:50 Plt Count 179 K/mm3 (150-450) 12/18/18 08:50 MPV 9.9 fl (8-12.5) 12/18/18 08:50 Immature Gran % (Auto) 1.10 % (0.001-0.429) H 12/18/18 08:50 Immature Gran # (Auto) 0.09 K/mm3 (0.000-0.0310) H 12/18/18 08:50 47.9 % (42-75.0) 12/18/18 08:50 38.1 % (20-51) 12/18/18 08:50 4.9 % (0.0-9) 12/18/18 08:50 7.5 % (0.0-3.0) H 12/18/18 08:50 0.5 % (0.0-1.0) 12/18/18 08:50 Nucleated RBC % 0.0 k/mm3 (0-1) 12/18/18 08:50 4.1 K/mm3 (1.3-6.0) 12/18/18 08:50 3.24 k/mm3 (1.5-3.5) 12/18/18 08:50 0.4 k/mm3 (0.0-1.0) 12/18/18 08:50 0.6 k/mm3 (0.0-0.7) 12/18/18 08:50 Absolute Basophils 0.0 k/mm3 (0.0-0.1) 12/18/18 08:50 Sodium 143 mmol/L (132-142) H 12/18/18 08:50 143 mmol/L (130-142) H 12/18/18 08:50 Potassium 4.1 mmol/L (3.4-4.6) 12/18/18 08:50 Chloride 107 mmol/L (97-106) H 12/18/18 08:50 Carbon Dioxide 27.5 mmol/L (24-32.6) 12/18/18 08:50 12.6 mmol/L (6.8-13.8) 12/18/18 08:50 BUN 16 mg/dL (3-23) 12/18/18 08:50 0.93 mg/dL (0.4-1.4) 12/18/18 08:50 Est GFR (Non-Af Amer) 64 mL/min (60-130) 12/18/18 08:50 17.2 (9.0-21.6) 12/18/18 08:50 93 mg/dL (70-110) 12/18/18 08:50 Calcium 9.0 mg/dL (7.9-10.9) 12/18/18 08:50 Calcium Adj for Albumin 9.2 mg/dL (8.4-10.2) 12/18/18 08:50 0.7 mg/dL (0.0-1.1) 12/18/18 08:50 AST 37 U/L (0-48) 12/18/18 08:50 ALT 49 U/L (19-67) 12/18/18 08:50 71 U/L (50-170) 12/18/18 08:50 Less than 0.017 ng/mL (0.00-0.10) 12/18/18 14:05 6.7 gm/dL (6.2-8.2) 12/18/18 08:50 3.4 gm/dl (3.4-5.0) 12/18/18 08:50 Assessment/Plan - Assessment/Plan (1) Chest pain Assessment: No longer present. No intervention given, so this subsided on its own. Her 2 troponins were not elevated. EKG shows sinus bradycardia. Chest pain likely secondary to her cough. Anticipate DC tomorrow. Problem: Acute (2) Reactive airway disease with acute exacerbation Assessment: We will add doxycycline for anti-inflammatory effect, and continue breathing treatments and Tessalon Perles. WBC not elevated. She is oxygenating well on room air. Problem: Acute Qualifiers: Asthma severity: moderate (3) HTN (hypertension) Assessment: Her blood pressure is not currently elevated, and she reports not taking her clonidine. Do not anticipate that she would be managed with clonidine alone for hypertension. Her primary care provider is an outside physician, and unable to access those notes. Problem: Chronic (4) Sinus bradycardia Assessment: Not present on EKGs over the weekend. Most recent recorded HR was 60. Will continue to monitor. Problem: Acute
[2018-12-18] MEDS: ASPIRIN 81 MG TAB.CHEW PO SCH (16:23)
[2018-12-18] MEDS: DOXYCYCLINE HYCLATE 100 MG TABLET PO SCH (22:14)
[2018-12-19] MEDS ORDERED: ALBUTEROL SULFATE 2.5 MG/0.5 ML VIAL.NEB IH PRN (08:21)
[2018-12-19] MEDS ORDERED: PANTOPRAZOLE SODIUM 40 MG TABLET.EC PO SCH (08:35)
[2018-12-19] MEDS: DOXYCYCLINE HYCLATE 100 MG TABLET PO SCH (08:43)
[2018-12-19] MEDS: ASPIRIN 81 MG TAB.CHEW PO SCH (08:45)
[2018-12-19] MEDS ORDERED: MONTELUKAST SODIUM 10 MG TABLET PO SCH (09:00)
--- NOTE | 2018-12-19 09:58 | DS ---
(1) Chest pain Problem: Resolved (2) Reactive airway disease with acute exacerbation Problem: Chronic Qualifiers: Asthma severity: moderate (3) HTN (hypertension) Problem: Chronic (4) Sinus bradycardia Problem: Acute Description of Stay: Patient with PMHx of asthma and recent overnight hospitalization 3 days prior went to the ER for central chest pain. She has had a cough for months, and it worsened 3 weeks ago. She reports no improvement despite intervention. She has a productive cough. Denies lower extremity swelling. The chest pain that was present earlier on the day of admission subsided by the time of my initial exam. She states Tessalon Perles and breathing treatments had been helpful. She reports being prescribed clonidine for cough and has not been taking it. She does not smoke. Denies fevers, abdominal pain, dysuria, constipation, diarrhea, skin problems. She was unable to name her medications. She was admitted for chest pain rule out. Of note, she was bradycardic on her initial EKG to the upper 40s. On the day of DC, her heart rate was in the 60's. Troponin was not elevated. She was started on doxycycline for her cough. She also complained of some reflux, and protonix was started. With her CP resolved and cough improved, she was DC'd home the day after admission. Clonidine was on her medication list, but she though she was taking it prn for cough. She had some elevated BP readings, but not significant. Due to clonidine's tendency to cause rebound HTN, this was DC'd. Recommend reassessing her need for an antihypertensive at subsequent outpatient visits. Patient would like to change PCP to a [place] physician. Recommend she establish with Dr. Mclaughlin or myself within the next 2 weeks, as we have seen her during these hospitalizations. Procedures Performed: none Results and Findings: Lab Pending Results 12/18/18 08:50: WBC 8.5, RBC 4.45, Hgb 13.9, Hct 41.2, MCV 92.6, MCH 31.2 H, MCHC 33.7, RDW 12.3, Plt Count 179, MPV 9.9, Immature Gran % (Auto) 1.10 H, Immature Gran # (Auto) 0.09 H, Neutrophils % 47.9, Lymphocytes % 38.1, Monocytes % 4.9, Eosinophils % 7.5 H, Basophils % 0.5, Nucleated RBC % 0.0, Neutrophils # 4.1, Lymphocytes # 3.24, Monocytes # 0.4, Eosinophils # 0.6, Absolute Basophils 0.0 12/18/18 08:50: Sodium 143 H, Plasma Sodium 143 H, Potassium 4.1, Chloride 107 H, Carbon Dioxide 27.5, Anion Gap 12.6, BUN 16, Creatinine 0.93, Est GFR (Non-Af Amer) 64, BUN/Creatinine Ratio 17.2, Random Glucose 93, Calcium 9.0, Calcium Adj for Albumin 9.2, Total Bilirubin 0.7, AST 37, ALT 49, Alkaline Phosphatase 71, Troponin I Less than 0.017, Total Protein 6.7, Albumin 3.4 12/18/18 14:05: Troponin I Less than 0.017 12/18/18 18:31: Troponin I 0.019 Discharge Location: Home Disposition: Home self-care Condition: Stable Discharge Activity: Activity as tolerated Discharge Diet: General/regular food Additional Patient Instructions (free text): -Please make TCM appointment unless halfway discharge. Thank you! Lolly @ [phone]. Hospital f/u with Dr Lucero or Dr. Mclaughlin within the next couple of weeks. Patient does not have an established PCP. Prescriptions (Any new or edited meds): Omeprazole 20 mg PO DAILY #30 tab. Budesonide/Formoterol Fumarate [Symbicort 160-4.5 Mcg Inhaler] 2 puff INHALATION BID #1 inhaler Doxycycline Hyclate [Vibratab] 100 mg PO BID #8 tab Complete Home Medications List: Complete Home Medication List: Aspirin 81 mg PO DAILY 12/13/18 Benzonatate [Tessalon] 200 mg PO QID PRN 12/18/18 Montelukast Sodium [Singulair] 10 mg PO DAILY 12/18/18 Budesonide/Formoterol Fumarate [Symbicort 160-4.5 Mcg Inhaler] 2 puff INHALATION BID #1 inhaler 12/19/18 Doxycycline Hyclate [Vibratab] 100 mg PO BID #8 tab 12/19/18 Omeprazole 20 mg PO DAILY #30 tab. 12/19/18 albuterol sulfate HFA 90 mcg/actuation aerosol inhaler 2 puff INHALATION Q4H PRN #1 [email or web address] 12/19/18 Amb Orders for Discharge: Regular Exercise Stress Test Time Frame: 2 Weeks, Location: Respiratory Therapy
[2018-12-19] MEDS: ALBUTEROL SULFATE/IPRATROPIUM 3 ML NEBU IH PRN (10:02)
[2018-12-19 10:52] VITALS: BP 146/70
[2018-12-20] MEDS ORDERED: PANTOPRAZOLE SODIUM 40 MG TABLET.EC PO SCH (07:00)
== END 2018-12-19 11:43 | disposition home or self-care (01) ==
LOC: MS 08:24 → ER 08:24 → MS 10:20
PROVIDERS: ADMIT Family Medicine; ATTEND Family Medicine
DX: R07.9 Chest pain, unspecified; J45.901 Unspecified asthma with (acute) exacerbation; I10 Essential (primary) hypertension; R00.1 Bradycardia, unspecified
CPT/HCPCS: 36415; 71020; 71046; 80053; 84484; 85025; 93005; 94640; 99285; G0378